=== PATIENT | female | born 1990 | race Caucasian/White ===

== ENCOUNTER 2018-02-19 00:46 | Inpatient (IN) ==
[2018-02-19 01:12] LABS: Bilirubin,Urine Negative (Negative); Blood,Urine Negative (Negative); Clarity,Urine Clear (Clear); Color,Urine Yellow (Yellow); Glucose,Urine (UA) Normal (Normal); Ketones,Urine Negative (Negative); Leukocyte Esterase,Urine Negative (Negative); Nitrite,Urine Negative (Negative); Protein,Urine Negative (Neg-Trace); Specific Gravity,Urine 1.008 (1.010-1.025); Urobilinogen,Urine Normal (Normal)
[2018-02-19 01:21] LABS: Amphetamine Screen,Urine Negative ng/mL (Cutoff=1000); Barbiturate Screen,Urine Negative ng/mL (Cutoff=200); Benzodiazepines Screen,Urine Negative ng/mL (Cutoff=200); Cannabinoid Screen,Urine Negative ng/mL (Cutoff = 50); Cocaine Screen,Urine Negative ng/mL (Cutoff= 300); Opiate Screen,Urine Negative ng/mL (Cutoff=300); Phencyclidine Screen,Urine Negative ng/mL (Cutoff=25)
[2018-02-19 01:45] LABS: Basophils # 0.1 K/mcL (0.0-0.2); Basophils % 0.6 %; Eosinophils # 0.4 K/mcL (0.0-0.6); Eosinophils % 3.7 %; Hematocrit 38.8 % (35.3-44.9); Hemoglobin 12.6 g/dL (11.5-15.4); Immature Granulocytes % 0.8 % (0-4); Lymphocytes # 4.1 K/mcL (0.6-4.6); Lymphocytes % 41.5 %; Mean Corpuscular HGB Conc 32.5 g/dL (31.6-35.5); Mean Corpuscular Hemoglobin 26.5 pg (28.0-33.3); Mean Corpuscular Volume 81.5 fL (83.0-100.0); Mean Platelet Volume 8.3 fL (9.4-12.4); Monocytes # 0.7 K/mcL (0.0-1.3); Monocytes % 7.2 %; Neutrophils # 4.6 K/mcL (1.6-8.9); Platelet Count 348 K/mcL (140-400); Red Blood Count 4.76 M/mcL (3.82-4.97); Red Cell Distribution Width 14.7 % (11.5-14.5); Segmented Neutrophils % 46.2 %
--- NOTE | 2018-02-19 01:50 | Emergency Department Note ---
Disposition Clinical Impression: Suicidal ideation Disposition: Admitted As Inpatient Condition: Fair Referrals: NONE,PCP [Primary Care Provider] - Forms: ED Satisfaction Letter Time of Disposition: 04:17 General Adult HPI - General Chief complaint: ED Psychiatric Symptoms Stated complaint: SI Time Seen by Provider: 02/19/18 01:00 Source: patient Mode of arrival: ambulatory Limitations: no limitations Nursing Notes Reviewed: Yes Vital Signs Reviewed: Yes - History of Present Illness HPI Narrative: Patient is a 27-year-old female presenting with suicidal ideation. Patient has past medical history significant for depression and anxiety. Patient states that for the past few week she has been having increasing thoughts of harming herself and suicidal ideation. She states that last week she did overdose on heroin intentionally, did have one dose of Narcan and was revived. She was not seen in the emergency department or evaluated outpatient. Since this time, she was entered into rehabilitation facility, [facility], 4 days ago. She states this time she has been detoxing and states she just wants to "leave and kill myself", she states that she currently has a plan of leaving rehabilitation and overdosing on heroin. Patient has past history of overdosing on heroin intentionally, twice within the past 3 months. She states she is from the [facility], and feels very out of place. Feels as though she has lost all hope. She denies homicidal ideation, visual or auditory hallucinations. She states that she does use heroin IV, has not used for about 5 days. She denies drug or other alcohol use at this time. Pain Scale: 7 - Related Data Home Medications Medication Instructions Recorded Confirmed Buspirone HCl [Buspar] 5 mg PO BID 02/19/18 02/19/18 Sertraline [Zoloft] 25 mg PO DAILY 02/19/18 02/19/18 Allergies Allergy/AdvReac Type Severity Reaction Status Date / Time acetaminophen [From Vicodin] AdvReac Nausea Verified 02/19/18 00:54 adhesive tape AdvReac See Verified 02/19/18 00:54 Comments hydrocodone [From Vicodin] AdvReac Nausea Verified 02/19/18 00:54 All systems ED: reviewed and negative except as stated. Review of Systems: As Per HPI Constitutional: Denies: fever, chills ENT ED: Denies: congestion Cardiovascular: Denies: chest pain, palpitations, dyspnea on exertion, syncope Respiratory: Denies: cough, dyspnea, wheezes Gastrointestinal: Denies: abdominal pain, nausea, vomiting Genitourinary: Denies: urgency, dysuria Integumentary: Denies: rash Neurological: Denies: headache, weakness, other Psychiatric: Reports: anxiety, depression, suicidal thoughts. Denies: homicidal thoughts, auditory hallucinations, visual hallucinations Past Medical History - Past Medical History Medical history: Reports: no medical history Psychiatric history: Reports: anxiety, depression - Social History Smoking Status: Current every day smoker Alcohol use: Reports: none Drug use: Reports: opiates, marijuana, methamphetamine, IV Drug Use Physical Exam - General Limitations: no limitations General appearance: alert, in no apparent distress - Head Head exam: atraumatic, normocephalic - Eye Eye exam: Present: normal appearance, PERRL, EOMI - ENT ENT exam: normal exam, mucous membranes moist - Neck Neck exam: Present: normal inspection - Chest Chest inspection: Present: normal inspection, symmetric chest wall rise - Respiratory Respiratory exam: Present: normal lung sounds bilaterally. Absent: wheezes - Cardiovascular Cardiovascular exam: Present: regular rate, normal rhythm - Abdominal Exam Abdominal exam: Present: soft, Non-Tender. Absent: tenderness, distention, guarding, rebound, rigidity - Extremities Exam Extremities exam: Present: normal inspection. Absent: tenderness, pedal edema - Expanded Lower Extremity Exam Neurovascular/Tendon exam: Present: normal capillary refill. Absent: pulse deficit, motor deficit, sensory deficit - Back Exam Back exam: Present: normal inspection. Absent: tenderness, vertebral tenderness - Neurological Exam Neurological exam: Present: alert, oriented X3, CN II-XII intact - Psychiatric Psychiatric exam: Present: normal affect, anxious, suicidal ideation. Absent: homicidal ideation - Skin Skin exam: Present: warm, dry, intact Course Course Narrative: Will order medical clearance, 1A will be called if medically cleared. Vital Signs Temperature 98.2 F 02/19/18 00:50 Pulse Rate 115 02/19/18 00:50 Respiratory Rate 20 02/19/18 00:50 Blood Pressure 128/88 02/19/18 00:50 O2 Sat by Pulse Oximetry 91 02/19/18 00:50 Temperature 98.2 F 02/19/18 00:50 Pulse Rate 115 02/19/18 00:50 Respiratory Rate 20 02/19/18 00:50 Blood Pressure 128/88 02/19/18 00:50 O2 Sat by Pulse Oximetry 91 02/19/18 00:50 Oxygen Delivery Oxygen Delivery Room Air Medical Decision Making - MDM Narrative Medical decision making narrative: Patient is 27-year-old male presenting with suicidal ideation. Laboratory evaluation showed a CBC, BMP and urine tox screen. At this point in time 1A B called, as patient is medically cleared. We will await recommendations on evaluation from 1A. At 0417,1A has identified me that patient will be admitted for further evaluated psychiatric evaluation for suicidal ideation. At this point in time, patient will be admitted to psychiatric floor for further evaluation and treatment. - Medical Records Medical records reviewed: Yes I reviewed the patient's medical records. - Lab Data Lab results reviewed: Yes I reviewed the patient's lab results. Result diagrams: 02/19/18 01:24 02/19/18 01:24 Lab Results 02/19/18 02/19/18 02/19/18 Range/Units 01:00 01:00 01:00 WBC (4.3-11.1) K/mcL RBC (3.82-4.97) M/mcL Hgb (11.5-15.4) g/dL Hct (35.3-44.9) % MCV (83.0-100.0) fL MCH (28.0-33.3) pg MCHC (31.6-35.5) g/dL RDW (11.5-14.5) % Plt Count (140-400) K/mcL MPV (9.4-12.4) fL Immature Gran % (0-4) % Seg Neutrophils % % Lymphocytes % % Monocytes % % Eosinophils % % Basophils % % Neutrophils # (1.6-8.9) K/mcL Lymphocytes # (0.6-4.6) K/mcL Monocytes # (0.0-1.3) K/mcL Eosinophils # (0.0-0.6) K/mcL Basophils # (0.0-0.2) K/mcL Sodium (136-145) mEq/L Potassium (3.5-5.1) mEq/L Chloride (98-107) mEq/L Carbon Dioxide (23-29) mEq/L BUN (6-20) mg/dL Creatinine (0.60-1.20) mg/dL Est GFR ( Amer) (> 60) Est GFR (Non-Af Amer) (> 60) BUN/Creatinine Ratio (6-26) Glucose (70-105) mg/dL Calculated Osmolality (280-300) Calcium (8.6-10.3) mg/dL Urine Color Yellow (Yellow) Urine Clarity Clear (Clear) Urine pH 6.0 (5.0-8.0) pH Units Ur Specific [place] 1.008 L (1.010-1.025) Urine Protein Negative (Neg-Trace) mg/dL Urine Glucose (UA) Normal (Normal) mg/dL Urine Ketones Negative (Negative) mg/dL Urine Blood Negative (Negative) Urine Nitrite Negative (Negative) Urine Bilirubin Negative (Negative) Urine Urobilinogen Normal (Normal) mg/dL Ur Leukocyte Esterase Negative (Negative) Urine Test Negative (Negative) Salicylates (15.0-30.0) mg/dL Urine Opiates Screen Negative (Shgpkl=842) ng/mL Acetaminophen (10-20) mcg/mL Ur Barbiturates Screen Negative (Ebtice=272) ng/mL Ur Phencyclidine Scrn Negative (Cutoff=25) ng/mL Ur Amphetamines Screen Negative (Hjfrya=2603) ng/mL U Benzodiazepines Scrn Negative (Mmucgf=609) ng/mL Urine Cocaine Screen Negative (Cutoff= 300) ng/mL U Marijuana (THC) Screen Negative (Cutoff = 50) ng/mL Ur Drug Screen Interp See Below Ethyl Alcohol (Less than 10) mg/dL 18 02/19/18 Range/Units 01:24 01:24 WBC 9.9 (4.3-11.1) K/mcL RBC 4.76 (3.82-4.97) M/mcL Hgb 12.6 (11.5-15.4) g/dL Hct 38.8 (35.3-44.9) % MCV 81.5 L (83.0-100.0) fL MCH 26.5 L (28.0-33.3) pg MCHC 32.5 (31.6-35.5) g/dL RDW 14.7 H (11.5-14.5) % Plt Count 348 (140-400) K/mcL MPV 8.3 L (9.4-12.4) fL Immature Gran % 0.8 (0-4) % Seg Neutrophils % 46.2 % Lymphocytes % 41.5 % Monocytes % 7.2 % Eosinophils % 3.7 % Basophils % 0.6 % Neutrophils # 4.6 (1.6-8.9) K/mcL Lymphocytes # 4.1 (0.6-4.6) K/mcL Monocytes # 0.7 (0.0-1.3) K/mcL Eosinophils # 0.4 (0.0-0.6) K/mcL Basophils # 0.1 (0.0-0.2) K/mcL Sodium 140 (136-145) mEq/L Potassium 3.9 (3.5-5.1) mEq/L Chloride 107 (98-107) mEq/L Carbon Dioxide 25 (23-29) mEq/L BUN 17 (6-20) mg/dL Creatinine 0.56 L (0.60-1.20) mg/dL Est GFR ( Amer) > 60 (> 60) Est GFR (Non-Af Amer) > 60 (> 60) BUN/Creatinine Ratio 30 H (6-26) Glucose 131 H (70-105) mg/dL Calculated Osmolality 293 (280-300) Calcium 9.7 (8.6-10.3) mg/dL Urine Color (Yellow) Urine Clarity (Clear) Urine pH (5.0-8.0) pH Units Ur Specific [place] (1.010-1.025) Urine Protein (Neg-Trace) mg/dL Urine Glucose (UA) (Normal) mg/dL Urine Ketones (Negative) mg/dL Urine Blood (Negative) Urine Nitrite (Negative) Urine Bilirubin (Negative) Urine Urobilinogen (Normal) mg/dL Ur Leukocyte Esterase (Negative) Urine Test (Negative) Salicylates < 2.5 L (15.0-30.0) mg/dL Urine Opiates Screen (Skbmvb=318) ng/mL Acetaminophen < 10 L (10-20) mcg/mL Ur Barbiturates Screen (Gmmkkn=963) ng/mL Ur Phencyclidine Scrn (Cutoff=25) ng/mL Ur Amphetamines Screen (Lsjbvz=5042) ng/mL U Benzodiazepines Scrn (Evxzky=367) ng/mL Urine Cocaine Screen (Cutoff= 300) ng/mL U Marijuana (THC) Screen (Cutoff = 50) ng/mL Ur Drug Screen Interp Ethyl Alcohol < 10 (Less than 10) mg/dL
[2018-02-19 01:54] LABS: Acetaminophen < 10 mcg/mL (10-20); BUN/Creatinine Ratio 30 (6-26); Blood Urea Nitrogen 17 mg/dL (6-20); Calcium 9.7 mg/dL (8.6-10.3); Carbon Dioxide 25 mEq/L (23-29); Chloride 107 mEq/L (98-107); Ethanol < 10 mg/dL (Less than 10); Glucose 131 mg/dL (70-105); Osmolality,Calculated 293 (280-300); Potassium 3.9 mEq/L (3.5-5.1); Salicylate < 2.5 mg/dL (15.0-30.0); Sodium 140 mEq/L (136-145); eGFR For Non-African Americans > 60 (> 60)
[2018-02-19] MEDS ORDERED: Mag Hydrox/Al Hydrox/Simeth 30 ML UDC PO PRN (04:53)
[2018-02-19] MEDS ORDERED: Haloperidol Lactate 5 MG/ML VIAL IM PRN (04:53)
[2018-02-19] MEDS ORDERED: MOM Conc 10 ML UD.LIQ PO PRN (04:53)
[2018-02-19] MEDS ORDERED: *HR* LORazepam 1 MG TABLET PO PRN (04:53)
[2018-02-19] MEDS ORDERED: Ibuprofen 400 MG TABLET PO PRN (04:53)
[2018-02-19] MEDS ORDERED: hydrOXYzine pamoate 25 MG CAPSULE PO PRN (04:53)
[2018-02-19] MEDS ORDERED: *HR* LORazepam 2 MG/ML VIAL IM PRN (04:53)
[2018-02-19] MEDS ORDERED: traZODone 50 MG TABLET PO PRN (04:53)
--- NOTE | 2018-02-19 05:32 | Emergency Department Note ---
Disposition Clinical Impression: Suicidal ideation Disposition: Admitted As Inpatient Condition: Fair General Adult HPI - General Chief complaint: ED Psychiatric Symptoms Stated complaint: SI Time Seen by Provider: 02/19/18 01:00 Source: patient Mode of arrival: ambulatory Limitations: no limitations Nursing Notes Reviewed: Yes Vital Signs Reviewed: Yes - History of Present Illness Pain Scale: 0 - Related Data Home Medications Medication Instructions Recorded Confirmed Buspirone HCl [Buspar] 5 mg PO BID 02/19/18 02/19/18 Sertraline [Zoloft] 25 mg PO DAILY 02/19/18 02/19/18 Allergies Allergy/AdvReac Type Severity Reaction Status Date / Time acetaminophen [From Vicodin] AdvReac Nausea Verified 02/19/18 00:54 adhesive tape AdvReac See Verified 02/19/18 00:54 Comments hydrocodone [From Vicodin] AdvReac Nausea Verified 02/19/18 00:54 Constitutional: Denies: fever, chills ENT ED: Denies: congestion Cardiovascular: Denies: chest pain, palpitations, dyspnea on exertion, syncope Respiratory: Denies: cough, dyspnea, wheezes Gastrointestinal: Denies: abdominal pain, nausea, vomiting Genitourinary: Denies: urgency, dysuria Integumentary: Denies: rash Neurological: Denies: headache, weakness, other Psychiatric: Reports: anxiety, depression, suicidal thoughts. Denies: homicidal thoughts, auditory hallucinations, visual hallucinations Past Medical History - Past Medical History Medical history: Reports: no medical history Psychiatric history: Reports: anxiety, depression - Social History Smoking Status: Current every day smoker Alcohol use: Reports: none Drug use: Reports: opiates, marijuana, methamphetamine, IV Drug Use Physical Exam - General Limitations: no limitations General appearance: alert, in no apparent distress Course Vital Signs Temperature 98.2 F 02/19/18 00:50 Pulse Rate 115 02/19/18 00:50 Respiratory Rate 20 02/19/18 00:50 Blood Pressure 128/88 02/19/18 00:50 O2 Sat by Pulse Oximetry 91 02/19/18 00:50 Temperature 98.2 F 02/19/18 00:50 Pulse Rate 115 02/19/18 00:50 Respiratory Rate 20 02/19/18 00:50 Blood Pressure 128/88 02/19/18 00:50 O2 Sat by Pulse Oximetry 91 02/19/18 00:50 Oxygen Delivery Oxygen Delivery Room Air Medical Decision Making - Lab Data Lab results reviewed: Yes I reviewed the patient's lab results. Result diagrams: 02/19/18 01:24 02/19/18 01:24 Lab Results 02/19/18 02/19/18 02/19/18 Range/Units 01:00 01:00 01:00 WBC (4.3-11.1) K/mcL RBC (3.82-4.97) M/mcL Hgb (11.5-15.4) g/dL Hct (35.3-44.9) % MCV (83.0-100.0) fL MCH (28.0-33.3) pg MCHC (31.6-35.5) g/dL RDW (11.5-14.5) % Plt Count (140-400) K/mcL MPV (9.4-12.4) fL Immature Gran % (0-4) % Seg Neutrophils % % Lymphocytes % % Monocytes % % Eosinophils % % Basophils % % Neutrophils # (1.6-8.9) K/mcL Lymphocytes # (0.6-4.6) K/mcL Monocytes # (0.0-1.3) K/mcL Eosinophils # (0.0-0.6) K/mcL Basophils # (0.0-0.2) K/mcL Sodium (136-145) mEq/L Potassium (3.5-5.1) mEq/L Chloride (98-107) mEq/L Carbon Dioxide (23-29) mEq/L BUN (6-20) mg/dL Creatinine (0.60-1.20) mg/dL Est GFR ( Amer) (> 60) Est GFR (Non-Af Amer) (> 60) BUN/Creatinine Ratio (6-26) Glucose (70-105) mg/dL Calculated Osmolality (280-300) Calcium (8.6-10.3) mg/dL Urine Color Yellow (Yellow) Urine Clarity Clear (Clear) Urine pH 6.0 (5.0-8.0) pH Units Ur Specific [place] 1.008 L (1.010-1.025) Urine Protein Negative (Neg-Trace) mg/dL Urine Glucose (UA) Normal (Normal) mg/dL Urine Ketones Negative (Negative) mg/dL Urine Blood Negative (Negative) Urine Nitrite Negative (Negative) Urine Bilirubin Negative (Negative) Urine Urobilinogen Normal (Normal) mg/dL Ur Leukocyte Esterase Negative (Negative) Urine Test Negative (Negative) Salicylates (15.0-30.0) mg/dL Urine Opiates Screen Negative (Olvztx=144) ng/mL Acetaminophen (10-20) mcg/mL Ur Barbiturates Screen Negative (Qbywbr=346) ng/mL Ur Phencyclidine Scrn Negative (Cutoff=25) ng/mL Ur Amphetamines Screen Negative (Mxeqoh=5916) ng/mL U Benzodiazepines Scrn Negative (Eqkkew=614) ng/mL Urine Cocaine Screen Negative (Cutoff= 300) ng/mL U Marijuana (THC) Screen Negative (Cutoff = 50) ng/mL Ur Drug Screen Interp See Below Ethyl Alcohol (Less than 10) mg/dL 02/19/18 02/19/18 Range/Units 01:24 01:24 WBC 9.9 (4.3-11.1) K/mcL RBC 4.76 (3.82-4.97) M/mcL Hgb 12.6 (11.5-15.4) g/dL Hct 38.8 (35.3-44.9) % MCV 81.5 L (83.0-100.0) fL MCH 26.5 L (28.0-33.3) pg MCHC 32.5 (31.6-35.5) g/dL RDW 14.7 H (11.5-14.5) % Plt Count 348 (140-400) K/mcL MPV 8.3 L (9.4-12.4) fL Immature Gran % 0.8 (0-4) % Seg Neutrophils % 46.2 % Lymphocytes % 41.5 % Monocytes % 7.2 % Eosinophils % 3.7 % Basophils % 0.6 % Neutrophils # 4.6 (1.6-8.9) K/mcL Lymphocytes # 4.1 (0.6-4.6) K/mcL Monocytes # 0.7 (0.0-1.3) K/mcL Eosinophils # 0.4 (0.0-0.6) K/mcL Basophils # 0.1 (0.0-0.2) K/mcL Sodium 140 (136-145) mEq/L Potassium 3.9 (3.5-5.1) mEq/L Chloride 107 (98-107) mEq/L Carbon Dioxide 25 (23-29) mEq/L BUN 17 (6-20) mg/dL Creatinine 0.56 L (0.60-1.20) mg/dL Est GFR ( Amer) > 60 (> 60) Est GFR (Non-Af Amer) > 60 (> 60) BUN/Creatinine Ratio 30 H (6-26) Glucose 131 H (70-105) mg/dL Calculated Osmolality 293 (280-300) Calcium 9.7 (8.6-10.3) mg/dL Urine Color (Yellow) Urine Clarity (Clear) Urine pH (5.0-8.0) pH Units Ur Specific [place] (1.010-1.025) Urine Protein (Neg-Trace) mg/dL Urine Glucose (UA) (Normal) mg/dL Urine Ketones (Negative) mg/dL Urine Blood (Negative) Urine Nitrite (Negative) Urine Bilirubin (Negative) Urine Urobilinogen (Normal) mg/dL Ur Leukocyte Esterase (Negative) Urine Test (Negative) Salicylates < 2.5 L (15.0-30.0) mg/dL Urine Opiates Screen (Jjokwn=209) ng/mL Acetaminophen < 10 L (10-20) mcg/mL Ur Barbiturates Screen (Wejvbr=323) ng/mL Ur Phencyclidine Scrn (Cutoff=25) ng/mL Ur Amphetamines Screen (Ihwayk=6573) ng/mL U Benzodiazepines Scrn (Vzvskw=802) ng/mL Urine Cocaine Screen (Cutoff= 300) ng/mL U Marijuana (THC) Screen (Cutoff = 50) ng/mL Ur Drug Screen Interp Ethyl Alcohol < 10 (Less than 10) mg/dL Attestation Statement - Attestation Attestation: I, Marco Tabor MD, personally evaluated this patient and discussed their management with the resident physician. I reviewed the resident's note and agree with the documented findings, medical decision making, and plan of care. 27 year old female persisted emergency department with a complaint of suicidal ideation. History of depression and anxiety in the past as well as suicidal ideation. She states the symptoms have been getting progressively worse over the past week. She also has a history of substance abuse. On examination patient is a well-developed thin female in no acute distress. She is alert and oriented 3. There is no cyanosis or diaphoresis. Breath sounds are clear and equal bilaterally. Heart regular rate and rhythm. Abdomen soft and nontender with normal bowel sounds. Reviewed and unremarkable. Patient medically medically cleared for psychiatric evaluation. [address] department was consulted and evaluated the patient in the emergency department and patient is being admitted to the [address] psychiatric unit.
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
[2018-02-19] MEDS: Nicotine 14 MG PATCH.TD24 TD SCH (12:11)
[2018-02-19] MEDS: traZODone 50 MG TABLET PO SCH (20:25)
[2018-02-20] MEDS: Nicotine 14 MG PATCH.TD24 TD SCH (08:05)
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
[2018-02-20] MEDS: traZODone 50 MG TABLET PO SCH (21:10)
[2018-02-21] MEDS: Nicotine 14 MG PATCH.TD24 TD SCH (08:39)
[2018-02-21 09:40] VITALS: BP 106/77
--- NOTE | 2018-02-21 10:27 | Discharge Summary ---
Date of Encounter: 02/21/18 Time of Encounter: 09:45 Diagnosis - Discharge Diagnosis (1) Suicidal ideation Status: Acute (2) Major depression Status: Acute Qualifiers: Major depression recurrence: recurrent Active/Remission status: currently active Major depression episode severity: moderate Qualified Code(s): F33.1 - Major depressive disorder, recurrent, moderate (3) Opiate dependence Status: Acute Qualifiers: Substance use status: uncomplicated Qualified Code(s): F11.20 - Opioid dependence, uncomplicated (4) Stimulant dependence Status: Acute Medications - Discharge Medications Prescriptions: Buspirone HCl [Buspar] 5 mg PO BID #60 tablet hydrOXYzine pamoate [HydrOXYzine Pamoate] 25 mg PO TID PRN #90 capsule PRN Reason: Anxiety Sertraline [Zoloft] 50 mg PO DAILY #30 tablet traZODone [TraZODone] 50 mg PO HS #30 tablet Buspirone HCl [Buspar] 5 mg PO BID #60 tablet 02/21/18 [Rx] Sertraline [Zoloft] 50 mg PO DAILY #30 tablet 02/21/18 [Rx] hydrOXYzine pamoate [HydrOXYzine Pamoate] 25 mg PO TID PRN #90 capsule 02/21/18 [Rx] traZODone [TraZODone] 50 mg PO HS #30 tablet 02/21/18 [Rx] 3 Allergy/AdvReac Type Severity Reaction Status Date / Time acetaminophen [From Vicodin] AdvReac Nausea Verified 02/20/18 10:27 adhesive tape AdvReac See Verified 02/20/18 10:27 Comments hydrocodone [From Vicodin] AdvReac Nausea Verified 02/20/18 10:27 Provider Date of admission: 02/19/18 04:19 Primary care physician: PCP NONE Discharging clinician: Keith Marin Psychiatry Exam - Constitutional Vitals: Temp Pulse Resp BP Pulse Ox 98.7 F 85 16 106/77 91 02/21/18 09:00 02/21/18 09:00 02/21/18 09:00 02/21/18 09:00 02/19/18 00:50 General appearance: age & developmentally appropriate, well-groomed, well- nourished - Musculoskeletal Gait: normal Station: relaxed Strength & Tone: normal for patient - Psychiatric Patient Orientation: Yes Person, Yes Time, Yes Place Level of alertness: Alert Behavior: calm, cooperative Psychomotor activity: Normal Eye Contact: Maintains Eye Contact Mood Description: Euthymic/stable Affect description: congruent with mood, full range Speech Volume: Normal Speech pattern: normal rate, normal rhythm, normal tone, fluent, spontaneous Language & Vocabulary: consistent with education Thought Process: Linear, Goal Oriented Thought Content: No Suicidal ideation, No Homicidal ideation, No Overt delusions Perceptual Disturbances: No Auditory hallucinations, No Visual hallucinations Attention Span Ability: Capable of Focused Attention Memory Description: Grossly Intact Patient Reliability: Reliable Historian Fund of knowledge: Yes abstraction ability, Yes aware of current events Intelligence Estimate: Average Judgment: Limited Insight: Partial Hospital Course Hospital course: Patient is a 27 yo female who presents for polysubstance abuse and depression with anxiety, pt noted a significant reeducation in his depression, cravings and anxiety during her stay at [address] . Pt noted that she slowly improved to the point that he was comfortable and safe to D/C back to programming. Pt noted she felt ers medications were working well and denied any current side effects. Treatment team encouraged Pt to stay out of bed and try to find activities to do, verbalized understanding. pt reported that she felt safe on the unit and comfortable for D/C back to programming. Pt Denied suicidal/homicidal ideations, denied any problems or concerns with medications or side effects. PT voiced progression towards treatment goals and was offered a copy of updated treatment plan completed during visit today. Denied any immediate needs or concerns. Pt denied any access to guns or weapons Pt throughout her stay on in psych pt felt like her medications were working and felt comfortable being discharged on these medications. Pt was advised to take all medications as prescribed, follow up with all scheduled appointments and abstain from any alcohol or illicit substances. Pt was in agreement. Pt felt safe and comfortable to be discharged to her home and follow up with outpt substance abuse and mental health programming. Pt was very optimistic about her D/C. Pt felt safe and comfortable for D/C. Pt stated that she was doing "good, " today. Pt stated that she slept "about 8 hours," last night. Pt stated that her appetite is "good." Pt stated that she rates her depression a "0," on a scale of 0-10 with 10 being the worst and 0 being none. Pt stated that she rates her anxiety an "0/10," on the same scale. Pt denies any auditory or visual hallucinations. Pt denied any thoughts to harm herself or anyone else. Pt felt safe and comfortable for D/C. The patient was educated primarily by verbal means about her diagnoses and their manifestations in her life. The option for treatment including group individual therapy programming was offered to her and the use of medications with all their potential risks, benefits, and side-effects were discussed with the pt at length. Pt was given the opportunity to ask questions and she participated in the treatment and planning process. Pt felt ready and eager to be discharged from the from the [facility] unit to be dishcarged home. Pt felt she was safe for this disposition. Pt was considered to be able to participate in informed consent and decision-making with respect to medical, legal and financial issues at the time of her discharge from the [facility]. No TD noted, AIMS=0 1.Interval hx 2.Continue current medications 3.Review current labs 4.Pt had an opportunity to ask questions and discuss current treatment plan. 5.Supportive therapy was provided 6.Pt encouraged to consider group or individual therapy 7.Pt was in agreement with treatment plan. 8.Pt was educated on the risks benefits and side effects of current medications. 9. take all medications as prescribed 10 abstain from any alcohol or illict substances. 11. follow up with all scheduled appointments. 12. D/C Pt home 13. Pt is to follow up with outpt substance abuse treatment programming and mental health follow up. Time spent discussing smoking cessation with patient: more than 10 minutes Does patient wish to continue nicotine replacement upon disc: No - Time Spent with Patient Total time spent providing and/or coordinating discharge services: Greater than 30 minutes Assessment and Plan - Patient/Caregiver Discharge Instructions Activity: resume usual activities as tolerated Diet: regular diet Additional Instructions: You will return to sober living at [facility] on discharge from the hospital to resume substance abuse treatment services. - Follow up Plan Follow up with: [facility] [Outside] - 03/21/18 3:00 pm (The above appointment is with Keesha Francisco for outpatient psychiatric assessment and medication management services. Please arrive 30 minutes early for first time psychiatry appointments, and 15 minutes early for follow-up psychiatry appointments. Please bring your photo ID (bring proof of address if you do not have an ID), insurance card and medication list. IF YOU DO NOT BRING YOUR INSURANCE CARD YOU CANNOT BE SEEN. The above appointment(s) reflects first availability. You may contact the office regularly to check for cancellations that may allow you to be seen sooner. Additionally, the new pillowcase cleaner assigned to you will contact you directly to schedule your intake appointment for case management and mental health counseling services. ) Overall status at discharge: Stable Disposition: Transfer Inpatient Rehab Fac Quality - Multiple Antipsychotics Patient discharged on 2 or more antipsychotic medications: No - Justification Documentation of: Other justification (Pt is not on 3 antipsychotic medications) Procedures - Procedures Procedures: Medication Management, Crisis Stabilization, Supportive Therapy, Group Therapy, Psychoeducational Therapy
== END 2018-02-21 10:51 | DRG 751 ==
LOC: EMEROOARM 00:46 → 1ANU 04:19
PROVIDERS: ADMIT Psychiatry & Neurology Psychiatry; ATTEND Psychiatry & Neurology Psychiatry

== ENCOUNTER 2019-01-05 16:15 | Inpatient (IN) ==
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
[2019-01-05] MEDS ORDERED: Ketorolac 15 MG/ML VIAL IVP ONE (17:18)
[2019-01-05 17:39] LABS: Basophils % 0.4 %; Eosinophils # 0.2 K/mcL (0.0-0.6); Eosinophils % 1.9 %; Hematocrit 39.7 % (35.3-44.9); Hemoglobin 12.5 g/dL (11.5-15.4); Immature Granulocytes % 0.4 % (0-4); Lymphocytes # 2.1 K/mcL (0.6-4.6); Lymphocytes % 25.8 %; Mean Corpuscular HGB Conc 31.5 g/dL (31.6-35.5); Mean Corpuscular Hemoglobin 26.3 pg (28.0-33.3); Mean Corpuscular Volume 83.6 fL (83.0-100.0); Mean Platelet Volume 8.9 fL (9.4-12.4); Monocytes # 0.6 K/mcL (0.0-1.3); Monocytes % 7.2 %; Neutrophils # 5.3 K/mcL (1.6-8.9); Platelet Count 321 K/mcL (140-400); Red Blood Count 4.75 M/mcL (3.82-4.97); Red Cell Distribution Width 14.2 % (11.5-14.5); Segmented Neutrophils % 64.3 %; White Blood Count 8.2 K/mcL (4.3-11.1)
[2019-01-05 18:02] LABS: Platelet Estimate Normal (Normal)
[2019-01-05 18:03] LABS: BUN/Creatinine Ratio 10 (6-26); Blood Urea Nitrogen 6 mg/dL (6-20); C-Reactive Protein 81 mg/L (Less than 10); Calcium 9.5 mg/dL (8.6-10.3); Carbon Dioxide 30 mEq/L (23-29); Chloride 102 mEq/L (98-107); Glucose 90 mg/dL (70-105); Osmolality,Calculated 281 (280-300); Potassium 3.5 mEq/L (3.5-5.1); Sodium 137 mEq/L (136-145); eGFR For African Americans > 60 (> 60); eGFR For Non-African Americans > 60 (> 60)
[2019-01-05] MEDS ORDERED: Isovue-370 500 ML BOTTLE IVP ONE (18:04)
[2019-01-05] MEDS ORDERED: *HR* FentaNYL (PF) 100 MCG/2 ML VIAL IVP ONE ×2 (18:06→19:33)
[2019-01-05] MEDS ORDERED: Clindamycin 600 MG/50 ML 600 MG/50 ML IV.SOLN IVPB ONE (18:52)
[2019-01-05] MEDS ORDERED: Tdap (Boostrix) Vaccine 0.5 ML SYRINGE IM ONE (18:59)
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
--- NOTE | 2019-01-05 19:25 | Emergency Department Note ---
Disposition Clinical Impression: Pain and swelling of right wrist Disposition: Still a Patient Condition: Undetermined Referrals: NONE,PCP [Primary Care Provider] - Forms: ED Satisfaction Letter Time of Disposition: 19:25 General Adult HPI - General Chief complaint: ED Skin/Abscess/Foreign Body Stated complaint: Abscess right hand Time Seen by Provider: 01/05/19 16:24 Source: patient Mode of arrival: ambulatory Limitations: no limitations - History of Present Illness Pain Scale: 10 - Related Data Home Medications Medication Instructions Recorded Confirmed No Known Home Drugs 01/05/19 01/05/19 Allergies Allergy/AdvReac Type Severity Reaction Status Date / Time acetaminophen [From Vicodin] AdvReac Nausea Verified 10/16/18 20:17 adhesive tape AdvReac See Verified 10/16/18 20:17 Comments hydrocodone [From Vicodin] AdvReac Nausea Verified 10/16/18 20:17 Constitutional: Reports: as per HPI, fever, chills. Denies: weakness, weight change Eyes: Denies: eye pain, eye discharge, vision change ENT ED: Denies: ear pain, throat pain, dental pain, hearing loss, epistaxis, congestion, dysphagia Cardiovascular: Denies: chest pain, palpitations, dyspnea on exertion, edema, syncope Respiratory: Denies: cough, dyspnea, wheezes, hemoptysis, stridor Gastrointestinal: Reports: as per HPI, nausea. Denies: abdominal pain, vomiting, diarrhea, constipation, hematemesis, melena, hematochezia Genitourinary: Denies: dysuria, frequency, hematuria, discharge Musculoskeletal: Reports: as per HPI, arthralgia (Right wrist pain and swelling). Denies: back pain, neck pain, myalgia Integumentary: Denies: rash, abrasion, lesions Neurological: Denies: headache, weakness, numbness, paresthesias, confusion, abnormal gait, vertigo Psychiatric: Denies: anxiety, depression, suicidal thoughts, homicidal thoughts, auditory hallucinations, visual hallucinations Endocrine: Denies: fatigue Hematological/Lymphatic: Denies: easy bleeding, easy bruising Allergic/Immunologic: Denies: facial swelling, urticaria Past Medical History - Past Medical History Medical history: Reports: no medical history Surgical history: Reports: non-contributory, Psychiatric history: Reports: depression - Social History Smoking Status: Current every day smoker Smokeless Tobacco Status: No Alcohol use: Reports: none Drug use: Reports: methamphetamine, IV Drug Use Physical Exam - General Limitations: no limitations General appearance: alert, in no apparent distress Course Vital Signs Temperature 98.9 F 01/05/19 16:17 Pulse Rate 115 01/05/19 16:17 Respiratory Rate 16 01/05/19 16:17 Blood Pressure 127/93 01/05/19 16:17 O2 Sat by Pulse Oximetry 98 01/05/19 16:17 Temperature 98.9 F 01/05/19 16:25 Pulse Rate 105 01/05/19 18:20 Respiratory Rate 18 01/05/19 18:20 Blood Pressure 122/73 01/05/19 18:20 O2 Sat by Pulse Oximetry 100 01/05/19 18:20 Oxygen Delivery Oxygen Delivery Room Air Medical Decision Making - Lab Data Result diagrams: 01/05/19 17:15 01/05/19 17:15 Lab Results 01/05/19 01/05/19 01/05/19 Range/Units 17:15 17:15 17:15 WBC 8.2 (4.3-11.1) K/mcL RBC 4.75 (3.82-4.97) M/mcL Hgb 12.5 (11.5-15.4) g/dL Hct 39.7 (35.3-44.9) % MCV 83.6 (83.0-100.0) fL MCH 26.3 L (28.0-33.3) pg MCHC 31.5 L (31.6-35.5) g/dL RDW 14.2 (11.5-14.5) % Plt Count 321 (140-400) K/mcL MPV 8.9 L (9.4-12.4) fL Immature Gran % 0.4 (0-4) % Seg Neutrophils % 64.3 % Lymphocytes % 25.8 % Monocytes % 7.2 % Eosinophils % 1.9 % Basophils % 0.4 % Neutrophils # 5.3 (1.6-8.9) K/mcL Lymphocytes # 2.1 (0.6-4.6) K/mcL Monocytes # 0.6 (0.0-1.3) K/mcL Eosinophils # 0.2 (0.0-0.6) K/mcL Basophils # 0.0 (0.0-0.2) K/mcL Platelet Estimate Normal (Normal) ESR 53 H (0-15) mm/hr Sodium 137 (136-145) mEq/L Potassium 3.5 (3.5-5.1) mEq/L Chloride 102 (98-107) mEq/L Carbon Dioxide 30 H (23-29) mEq/L BUN 6 (6-20) mg/dL Creatinine 0.58 L (0.60-1.20) mg/dL Est GFR ( Amer) > 60 (> 60) Est GFR (Non-Af Amer) > 60 (> 60) BUN/Creatinine Ratio 10 (6-26) Glucose 90 (70-105) mg/dL Calculated Osmolality 281 (280-300) Lactic Acid (0.5-2.2) mmol/L Calcium 9.5 (8.6-10.3) mg/dL C-Reactive Protein 81 H (Less than 10) mg/L Serum , Qual (Negative) 01/05/19 01/05/19 Range/Units 17:15 17:15 WBC (4.3-11.1) K/mcL RBC (3.82-4.97) M/mcL Hgb (11.5-15.4) g/dL Hct (35.3-44.9) % MCV (83.0-100.0) fL MCH (28.0-33.3) pg MCHC (31.6-35.5) g/dL RDW (11.5-14.5) % Plt Count (140-400) K/mcL MPV (9.4-12.4) fL Immature Gran % (0-4) % Seg Neutrophils % % Lymphocytes % % Monocytes % % Eosinophils % % Basophils % % Neutrophils # (1.6-8.9) K/mcL Lymphocytes # (0.6-4.6) K/mcL Monocytes # (0.0-1.3) K/mcL Eosinophils # (0.0-0.6) K/mcL Basophils # (0.0-0.2) K/mcL Platelet Estimate (Normal) ESR (0-15) mm/hr Sodium (136-145) mEq/L Potassium (3.5-5.1) mEq/L Chloride (98-107) mEq/L Carbon Dioxide (23-29) mEq/L BUN (6-20) mg/dL Creatinine (0.60-1.20) mg/dL Est GFR ( Amer) (> 60) Est GFR (Non-Af Amer) (> 60) BUN/Creatinine Ratio (6-26) Glucose (70-105) mg/dL Calculated Osmolality (280-300) Lactic Acid 1.3 (0.5-2.2) mmol/L Calcium (8.6-10.3) mg/dL C-Reactive Protein (Less than 10) mg/L Serum , Qual Negative (Negative) Attestation Statement - Attestation Attestation: For this encounter, I have reviewed the ENROLLMENT SPECIALIST or PA documentation, treatment plan, and medical decision making; and I have had face to face time with this patient. I have accepted sign out from Dr. Clint Fox and the plan is to followup on CT scanand discuss case with ortho in the event that she has joint involvement. ABX given and CT pending.
[2019-01-05] MEDS ORDERED: Piperacillin/Tazobactam 3.375 GM in 0.9 % Sodium Chloride Mini Bag 100 ML IVPB ONE (19:37)
[2019-01-05] MEDS ORDERED: *HR* LORazepam 2 MG/ML VIAL IVP ONE (19:46)
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
[2019-01-05] MEDS ORDERED: *HR* HYDROmorphone (PF) 1 MG/ML SYRINGE IVP ONE (21:25)
[2019-01-05] MEDS ORDERED: Ketorolac 30 MG/ML VIAL IVP ONE (21:25)
[2019-01-05] MEDS ORDERED: Ondansetron 4 MG/2 ML VIAL IVP PRN (21:26)
[2019-01-05] MEDS ORDERED: Nicotine 14 MG PATCH.TD24 TD SCH (21:36)
[2019-01-05] MEDS ORDERED: traMADol 50 MG TABLET PO PRN (21:40)
[2019-01-05] MEDS ORDERED: Naloxone 0.4 MG/ML INJ IVP PRN (21:40)
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
[2019-01-05] MEDS: Ringers Solution, Lactated 1,000 ML IVC SCH (21:45)
[2019-01-06] MEDS: *HR* OxyCODONE Immed Rel 5 MG TABLET PO PRN ×2 (02:31→08:54)
[2019-01-06] MEDS ORDERED: *HR* HYDROmorphone (PF) 1 MG/ML SYRINGE IVP ONE (03:32)
[2019-01-06] MEDS ORDERED: Ketorolac 30 MG/ML VIAL IVP ONE ×3 (03:32→17:30)
[2019-01-06 04:30] LABS: Basophils % 0.3 %; Eosinophils # 0.2 K/mcL (0.0-0.6); Eosinophils % 1.9 %; Immature Granulocytes % 0.5 % (0-4); Lymphocytes # 2.2 K/mcL (0.6-4.6); Lymphocytes % 28.4 %; Mean Corpuscular HGB Conc 31.1 g/dL (31.6-35.5); Mean Corpuscular Hemoglobin 25.5 pg (28.0-33.3); Mean Platelet Volume 8.7 fL (9.4-12.4); Monocytes # 0.6 K/mcL (0.0-1.3); Monocytes % 7.5 %; Neutrophils # 4.8 K/mcL (1.6-8.9); Platelet Count 281 K/mcL (140-400); Red Blood Count 4.27 M/mcL (3.82-4.97); Red Cell Distribution Width 14.2 % (11.5-14.5); Segmented Neutrophils % 61.4 %; White Blood Count 7.9 K/mcL (4.3-11.1)
[2019-01-06 04:31] LABS: Hemoglobin 10.9 g/dL (11.5-15.4)
[2019-01-06 04:49] LABS: Alanine Aminotransferase 153 Units/L (7-52); Albumin 3.3 g/dL (3.5-5.7); Albumin/Globulin Ratio 1.3 (1.1-2.2); Alkaline Phosphatase 105 Units/L (34-104); Aspartate Amino Transferase 135 Units/L (13-39); BUN/Creatinine Ratio 15 (6-26); Bilirubin,Direct 0.1 mg/dL (0.0-0.2); Bilirubin,Indirect 0.2 mg/dL (0.0-1.2); Bilirubin,Total 0.3 mg/dL (0.3-1.0); Blood Urea Nitrogen 8 mg/dL (6-20); Calcium 8.8 mg/dL (8.6-10.3); Carbon Dioxide 26 mEq/L (23-29); Chloride 105 mEq/L (98-107); Globulin 2.5 g/dL (2.4-3.5); Glucose 129 mg/dL (70-105); Magnesium 1.8 mg/dL (1.6-2.6); Osmolality,Calculated 284 (280-300); Potassium 3.8 mEq/L (3.5-5.1); Sodium 137 mEq/L (136-145); Total Protein 5.8 g/dL (6.4-8.9); eGFR For African Americans > 60 (> 60); eGFR For Non-African Americans > 60 (> 60)
[2019-01-06 05:10] LABS: Hepatitis B Surface Antigen Nonreactive (Nonreactive)
[2019-01-06] MEDS: Ringers Solution, Lactated 1,000 ML IVC SCH (05:19)
[2019-01-06 05:39] LABS: Hepatitis B Core IgM Nonreactive (Nonreactive)
[2019-01-06 05:41] LABS: Hepatitis A Antibody IgM Nonreactive (Nonreactive)
[2019-01-06 07:49] LABS: Amphetamine Screen,Urine Positive ng/mL (Cutoff=1000); Barbiturate Screen,Urine Negative ng/mL (Cutoff=200); Benzodiazepines Screen,Urine Negative ng/mL (Cutoff=200); Cannabinoid Screen,Urine Negative ng/mL (Cutoff = 50); Cocaine Screen,Urine Negative ng/mL (Cutoff= 300); Opiate Screen,Urine Positive ng/mL (Cutoff=300); Phencyclidine Screen,Urine Negative ng/mL (Cutoff=25)
--- NOTE | 2019-01-06 08:56 | Anesthesia Evaluation PreOp ---
Date of Encounter: 01/06/19 Time of Encounter: 08:53 - Past History Planned Operation: RIGHT HAND ABCESS I&D Cardiac History: Denies any Significant Hx Pulmonary History: Smoker [employer] History: Other (DEPRESSION, IV DRUG ABUSE) Other Medical History: Denies Any Significant HX Anesthesia History: No Prior Anesthetic Complications : No Test: Negative Alcohol Use: none Drug use: methamphetamine, IV Drug Use Medications and Allergies No Known Home Drugs 01/05/19 [History] Allergy/AdvReac Type Severity Reaction Status Date / Time acetaminophen [From Vicodin] AdvReac Nausea Verified 10/16/18 20:17 adhesive tape AdvReac See Verified 10/16/18 20:17 Comments hydrocodone [From Vicodin] AdvReac Nausea Verified 10/16/18 20:17 - Meds/Allergy Pre-op Review Medications Reviewed: Yes Allergies Reviewed: Yes Anesthesia Results - Labs 01/06/19 03:50 01/06/19 03:50 Anesthesia Exam Vital Signs/O2 Sat, Most Current Temp Pulse Resp BP Pulse Ox 98.7 F 100 15 146/77 98 01/06/19 07:02 01/06/19 07:02 01/06/19 07:02 01/06/19 07:02 01/06/19 07:02 Weight: 58 KG - BMI 21 NPO (# of Hours): 8 - HEENT Mallampati: I Teeth: Normal (ORAL PIERCINGS) - Cardiac Rhythm: Regular - Pulmonary Breath Sounds: bilateral Clear Anesthesia Assess/Plan ASA Score: 3 Anesthetic Plan: General, Regional Nerve Block Monitoring Plan: Standard Monitors Recovery Plan: PACU
[2019-01-06 11:08] LABS: Hepatitis C Virus Antibody Reactive (Nonreactive)
--- NOTE | 2019-01-06 13:03 | Internal Med Progress Note ---
Hospitalist Progress Note - Encounter Date of Encounter: 01/06/19 Time of Encounter: 10:00 - Subjective Interval History: No acute events. Patient complains of some pain in her right hand. She is scheduled for I&D today - Exam Vitals: Temp Pulse Resp BP Pulse Ox 37.2 C 111 15 119/79 95 01/06/19 12:22 01/06/19 12:22 01/06/19 12:22 01/06/19 12:22 01/06/19 12:22 Exam: GENERAL: Not in distress. Alert and Oriented HEENT: EOM, PERRLA MOUTH: Good oral hygiene NECK:No JVD, No lymph nodes. CHEST AND LUNGS: Normal breath sounds, no wheezes or crackles HEART: S1 and S2 normal, no murmurs ABDOMEN: Soft, nontender, no organomegaly GENITOURINARY: SKIN: Normal color, no rahses, no lesions EXTREMITIES: No deformity, no edema, no tenderness, no joint swelling or club migdalia NEUROLOGICAL: Normal cognition, normal motor and sensory exam. - Assessment and Plan (1) Abscess of hand Current Visit: Yes Status: Acute Assessment and Plan: Patient has right hand abscess Has been evaluated by ortho Scheduled for I and D today. Continue antibiotics and pain meds (2) Opiate dependence Current Visit: Yes Status: Chronic Assessment and Plan: Last use of IV heroin was 3 days ago No withdrawal symptoms at the moment Patient counseled about available resources to help her quit. (3) Hepatitis C antibody positive in blood Current Visit: Yes Status: Acute Assessment and Plan: Moderate elevation of LFTs Hep C antibody positive Will check for Hep C RNA Monitor DVT Prophylaxis: SQ Heparin - Time Spent with Patient Total time spent is greater than 50% in coordination of care (as documented) at patient's floor/unit and/or counseling patient: Internal Medicine: Result - Labs CBC & Chem 7: 01/06/19 03:50 01/06/19 03:50 Labs: Short CBC 01/05/19 01/06/19 Range/Units 17:15 03:50 WBC 8.2 7.9 (4.3-11.1) K/mcL Hgb 12.5 10.9 L D (11.5-15.4) g/dL Hct 39.7 35.0 L (35.3-44.9) % Plt Count 321 281 (140-400) K/mcL Neutrophils # 5.3 4.8 (1.6-8.9) K/mcL BMP 01/05/19 01/06/19 17:15 03:50 Sodium 137 137 Potassium 3.5 3.8 Chloride 102 105 Carbon Dioxide 30 H 26 BUN 6 8 Creatinine 0.58 L 0.55 L Glucose 90 129 H Calcium 9.5 8.8 Liver Function 01/06/19 Range/Units 03:50 Total Bilirubin 0.3 (0.3-1.0) mg/dL Direct Bilirubin 0.1 (0.0-0.2) mg/dL AST 135 H (13-39) Units/L ALT 153 H (7-52) Units/L Alkaline Phosphatase 105 H (34-104) Units/L Albumin 3.3 L (3.5-5.7) g/dL - Impressions Impressions Hand X-Ray 01/05/19 16:34 IMPRESSION: Extensive soft tissue swelling along the dorsal aspect of the hand and wrist suggesting cellulitis. No evidence of soft tissue gas. No acute bone or joint abnormality. D/ / 01/05/2019 18:06:03 Duy Real MD / angel Interpreting Provider: Duy Real MD Wrist X-Ray 01/05/19 16:34 IMPRESSION: Extensive soft tissue swelling along the dorsal aspect of the hand and wrist suggesting cellulitis. No evidence of soft tissue gas. No acute bone or joint abnormality. D/ / 01/05/2019 18:06:03 Duy Real MD / angel Interpreting Provider: Duy Real MD Wrist CT 01/05/19 18:04 IMPRESSION: Large complex rim enhancing collection along the dorsal aspect of the carpus measuring 4.6 x 2.3 x 2.7 cm in size consistent with a soft tissue/subcutaneous abscess. Extensive surrounding soft tissue edema suggesting cellulitis. No acute bone or joint abnormality. D/ / 01/05/2019 19:32:45 Duy Real MD / [facility] [place] Interpreting Provider: Duy Real MD Consult Discharge Plan - Plan Referrals: NONE,PCP [Primary Care Provider] - (2) Opiate dependence Qualifiers: Substance use status: uncomplicated Qualified Code(s): F11.20 - Opioid dependence, uncomplicated
[2019-01-06] MEDS ORDERED: *HR* OxyCODONE/APAP 10/325 TABLET PO ONE (13:53)
[2019-01-06] MEDS ORDERED: *HR* LORazepam 2 MG/ML VIAL IVP ONE (13:53)
[2019-01-06] MEDS ORDERED: Albuterol 2.5 MG/3 ML NEBULIZER IH ONE (14:43)
[2019-01-06] MEDS ORDERED: *HR* OxyCODONE Immed Rel 5 MG TABLET PO PRN ×3 (14:43→17:30)
[2019-01-06] MEDS ORDERED: *HR* HYDROmorphone (PF) 1 MG/ML SYRINGE IVP PRN (14:43)
[2019-01-06] MEDS ORDERED: *HR* Promethazine 25 MG/ML VIAL IVP PRN ×2 (14:43→17:30)
[2019-01-06] MEDS ORDERED: *HR* Meperidine 25 MG/ML SYRINGE IVP PRN ×2 (14:43→17:30)
[2019-01-06] MEDS ORDERED: Ropivacaine/PF 0.5% 30 ML VIAL ONE (14:57)
[2019-01-06] MEDS ORDERED: *HR* Midazolam HCl 2 MG/2 ML VIAL ONE (14:58)
[2019-01-06] MEDS ORDERED: *HR* FentaNYL (PF) 100 MCG/2 ML VIAL ONE (14:58)
[2019-01-06] MEDS ORDERED: *HR* Propofol 200 MG/20 ML VIAL IVP ONE (15:45)
[2019-01-06] MEDS ORDERED: Lidocaine -MPF 2% 2 ML VIAL ONE (15:50)
--- NOTE | 2019-01-06 16:17 | Anesthesia Procedures ---
Date of Encounter: 01/06/19 Time of Encounter: 16:15 Procedures: Anesthesia - Nerve Block Procedure Date: 01/06/19 Time: 15:33 Checklist: Correct Patient Identifier, Correct procedure Correct side: Right Monitor Applied: EKG, BP, Pulse Oximetry Block Type: Supraclavicular Sterile Technique: Yes Ultrasound used: Yes Anatomy identified: Yes Visual spread of Local: Yes Blood on Needle Aspiration: No Smooth Injection of Local: Yes (INCREMENTAL ASPIRATION & INJECTION) Pain with Injection of Local: No Prep: Chlorhexadine Needle: 22 x 50 mm Stimuplex Local: Ropivacaine (0.5%) Volume (cc): 25 Complications: None/effective block
--- NOTE | 2019-01-06 16:31 | Anesthesia Evaluation Post Op ---
Date of Encounter: 01/06/19 Time of Encounter: 16:30 - Discharge PostOp Status: Transfer Patient to floor (Patient's vital signs have been reviewed. Patient is stable postoperatively and has adequately recovered from anesthesia. Patient is determined to have stable airway patency and respiratory function including respiratory rate and oxygen saturation. Patient has a stable heart rate, blood pressure and adequate hydration. Patients mental status is acceptable. Patients temperature is appropriate. Pain and nausea are adequately controlled)
--- NOTE | 2019-01-06 16:35 | Operative Note ---
Date of procedure: 01/06/19 Pre-op diagnosis: Abscess right hand/wrist Post-op diagnosis: same Procedure: Incision and drainage of abscess right hand/wrist Implants: None Complications: None Anesthesia: MAC, regional Surgeon: Ash Salazar Was there an oncology physician assistant present: No Estimated blood loss (cc): 9 Tourniquet Time (Minutes): 0 Specimen: Aerobic and anaerobic cultures Condition: stable Disposition: PACU Procedure in Detail: Gross findings: Preoperative examination revealed a massively edematous and fluctuant area on the dorsum of the right wrist/hand area overlying the region of the ulnar styloid and the ulnar metacarpals. This is associated with thinning skin with some desquamation of the skin superficially. The area was opened with the expulsion of thick purulent material under pressure. A large pocket was evacuated of a marked amount of this process. The abscess cavity was irrigated and debrided of minimal necrotic tissue. The wound was packed with iodoform packing and dressings applied. Aerobic and anaerobic cultures were obtained upon opening of the abscess. Procedure: Patient was taken the operating room and placed in supine position on the operating table. Patient previously had a supraclavicular nerve block administered by anesthesia. Patient was monitored as a tourniquet was applied to the right forearm. Right upper extremity was now prepped and draped in bran l standard fashion for surgery. Utilizing electrocautery device the skin was cut in a relatively longitudinal manner and the abscess cavity was opened. Marked amount of thick purulent material was encountered and cultures were obtained at this time. Cavity was evacuated of this fluid. Cavity was now irrigated. Skin was debrided where some potentially necrotic areas were noted. Careful blunt dissection of the cavity was performed verifying and no additional pockets of pus or other infectious areas were present. This is followed by an additional irrigation of the wound and then drying of the wound and then packing it with 1/4 inch iodoform packing. Sterile dressings consisting of 4 x 4's Kerlix and Ilya wrap were applied and secured. Patient was now transferred from the operating room to the hospital bed and then transported to the postanesthesia care unit in stable and satisfactory condition. All sponge needle and instrument counts were correct. Specimens for pathology were the aerobic and anaerobic cultures
[2019-01-06] MEDS ORDERED: traMADol 50 MG TABLET PO PRN (17:30)
[2019-01-06] MEDS ORDERED: Ondansetron 4 MG/2 ML VIAL IVP PRN (17:30)
[2019-01-06] MEDS ORDERED: Naloxone 0.4 MG/ML INJ IVP PRN (17:30)
[2019-01-06] MEDS ORDERED: Nicotine 14 MG PATCH.TD24 TD SCH (21:36)
[2019-01-06] MEDS ORDERED: Ibuprofen 600 MG TABLET PO ONE (23:32)
[2019-01-07] MEDS ORDERED: *HR* Enoxaparin 40 MG/0.4 ML SYRINGE SQ SCH (06:00)
--- NOTE | 2019-01-07 10:01 | Internal Med Progress Note ---
Hospitalist Progress Note - Encounter Date of Encounter: 01/07/19 Time of Encounter: 09:59 - Subjective Interval History: Patient seen and examined this morning at bedside. No acute overnight events. Mentions adamantly she wants to go home. Complains of pain in her right hand. Afebrile and hemodynamically stable. Denies any chest pain or difficulty breathing. Tearful at times. - Exam Vitals: Temp Pulse Resp BP Pulse Ox 98.7 F 102 17 118/81 99 01/07/19 07:36 01/07/19 07:36 01/07/19 07:36 01/07/19 07:36 01/07/19 07:36 Exam: General: In no acute distress. Respiratory exam: CTAB. no accessory muscle use, rales, rhonchi, wheezes Cardiovascular exam: RRR, +S1, +S2. no murmur, gallop, rubs. GI/Abdominal exam: Non-tender, Non-distended, normal bowel sounds, soft, no peritoneal signs. Extremities exam: no pedal edema, pulses palpable in b/l lower extremities. no calf tenderness, Rt arm with sling and dressing in place on hand and forearm without soakage Neurological exam: CN II-XII intact, AO X3, no focal deficits. Skin exam: No skin rash Psych: Labile affect - Assessment and Plan (1) Opiate dependence Status: Chronic (2) Abscess of hand Status: Acute (3) Hepatitis C antibody positive in blood Status: Acute - Summary of Assessment and Plan Summary of Assessment and Plan: Assessment Acute Hand abscess amphetamine use Chronic opiate dependence Hepatitis C history Plan - s/p I&D 01/06. Pending culture results from wound. Blood culture 01/05 NGTD. c/w vancomycin. Ortho following. - Last use of IV heroin was 3 days ago before admission. Say will likely "go under the bridge on discharge" and insistent on leaving but has no means to get antibiotics. Is manipulative and gives false information. - Hepatitis C antibody positive in blood. Moderate elevation of LFTs. No encephlopathic. pending RNA lab - SQ Heparin for DVT ppx - Discussed about risk of leaving including life and limb threating spread of infection but threatening to leave today. Patient's affect is labile, but does understand the risk. Will obtain psychiatry evaluation. Internal Medicine: Result - Labs CBC & Chem 7: 07/21/19 03:50 01/06/19 03:50 Consult Discharge Plan - Plan Referrals: NONE,PCP [Primary Care Provider] - (1) Opiate dependence Qualifiers: Substance use status: uncomplicated Qualified Code(s): F11.20 - Opioid dependence, uncomplicated
[2019-01-07] MEDS ORDERED: Aminoglycoside Consult 1 EACH MC ONE (12:06)
[2019-01-07] MEDS ORDERED: Ketorolac 30 MG/ML VIAL IVP PRN (12:36)
[2019-01-07] MEDS ORDERED: Ondansetron 4 MG/2 ML VIAL IVP PRN (12:44)
[2019-01-07] MEDS ORDERED: traMADol 50 MG TABLET PO PRN (12:45)
[2019-01-07] MEDS ORDERED: cloNIDine HCl 0.1 MG TABLET PO SCH (15:00)
[2019-01-07 21:59] VITALS: BP 118/81
[2019-01-08] MEDS ORDERED: *HR* Enoxaparin 40 MG/0.4 ML SYRINGE SQ SCH (06:00)
[2019-01-08] MEDS ORDERED: Nicotine 14 MG PATCH.TD24 TD SCH (09:00)
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
[2019-01-09 14:45] LABS: HCV Quant Log 5.65 log IU/mL
[2019-01-09 15:16] LABS: HCV Quant Interpretation DETECTED (Not Detected)
== END 2019-01-07 12:07 | disposition left against medical advice (07) | DRG 361 ==
LOC: 3NENU 16:15 → EMEROOARM 16:15 → SUATTDRO 21:26 → 3NENU 21:29 → 3ANU 01-07 10:42
PROVIDERS: ADMIT Internal Medicine; ATTEND Internal Medicine